=== PATIENT | male | born 1985 | race Caucasian/White ===

== ENCOUNTER 2020-07-31 19:24 | Emergency (ER) | payer OTHER ==
[2020-07-31 19:55] VITALS: BP 163/73
--- OUTSIDE RECORDS SUMMARY | 2020-07-31 20:15 | EXTERNAL MEDICAL SUMMARY RPT | Continuity of Care Document ---
:1985 Demographics Phone Unavailable Preferred Language Unknown Marital Status Unknown Yarsanism Affiliation Unknown Race Unknown Ethnic Group Unknown Author Organization [facility] Address [address] [phone] Phone Social History date description facility [id number]
--- NOTE | 2020-07-31 20:18 | XRAY Report ---
PROCEDURE: Foot 3 View RT INDICATIONS: injury, smacked on a metal chair TECHNIQUE: 3 views of the foot were acquired. COMPARISON: None FINDINGS: Bones: No fractures or dislocations. No suspicious bony lesions. Incidental note is made of an acc essory ossicle, an os peroneum. Soft tissues: No tibiotalar joint effusion. Achilles tendon appears normal. IMPRESSION: No displaced fractures are seen on this plain study. In this patient with a given history of trauma, please correlate with focal tenderness. If clinically appropriate, please consider a short-term follow-up plain films series versus a dedicated CT study. Reviewed by: Mike Ruvalcaba MD on 07/31/2020 7:17 PM [facility] Approved by: Mike Ruvalcaba MD on 07/31/2020 7:17 PM TITI Station ID: [id number]
--- NOTE | 2020-07-31 20:39 | ED Physician Documentation ---
PD HPI LOWER EXT INJURY - Stated complaint Stated Complaint: RT FOOT PX - Chief complaint Chief Complaint: Trauma Ext - History obtained from History obtained from: Patient - History of Present Illness PD HPI LOW EXT INJURY LOCATION: Right - Additional information Additional information: 1130 this morning was doing handstands and when he came down he hit the top of his right foot on a chair. Has pain near the proximal first metatarsal. He is able to walk and bear weight. No other injuries. Review of Systems Constitutional: reports: Reviewed and negative Eyes: reports: Reviewed and negative Ears: reports: Reviewed and negative Nose: reports: Reviewed and negative PD PAST MEDICAL HISTORY - Present Medications Home Medications: Ambulatory Orders Medication Instructions Recorded Confirmed traMADol [Ultram] 50 mg PO Q4-6H PRN #10 tablet 07/31/20 - Allergies Allergies/Adverse Reactions: Allergies Allergy/AdvReac Type Severity Reaction Status Date / Time NSAIDS (Non-Steroidal AdvReac Headache Verified 07/31/20 19:55 Anti-Inflamma PD ED PE NORMAL - Vitals Vital signs reviewed: Yes - General General: Alert and oriented X 3, No acute distress - Extremities Extremities: Other (There is ecchymosis and scrape near the proximal first metatarsal with mild tenderness but no pain with range of motion of the first toe.) - Neuro Neuro: Alert and oriented X 3, Normal speech Results - Vitals Vitals: Vital Signs - 24 hr 07/31/20 19:52 Temperature 37.1 C Heart Rate 74 Respiratory 14 Rate Blood Pressure 163/73 H O2 Saturation 98 Oxygen O2 Source Room air - Rads (name of study) Three-view right foot Radiology: EMP read contemporaneously (Normal) Departure - Departure Disposition: Home, Self Care Clinical Impression: Contusion of right foot Qualifiers: Encounter type: initial encounter Qualified Code(s): S90.31XA - Contusion of right foot, initial encounter Condition: Good Record reviewed to determine appropriate education?: Yes Instructions: ED Sprain Foot Prescriptions: traMADol [Ultram] 50 mg PO Q4-6H PRN #10 tablet PRN Reason: Pain Comments: Recheck with your doctor in a week if not improved, return for new or worsening symptoms.
[2020-07-31] MEDS ORDERED: traMADol 50 MG TABLET PO STA (20:40)
== END 2020-07-31 20:57 | disposition home or self-care (01) ==
LOC: ED 19:24
DX: S90.31XA Contusion of right foot, initial encounter (principal); W22.8XXA Striking against or struck by other objects, initial encounter; Y93.B9 Activity, other involving muscle strengthening exercises; Y92.009 Unspecified place in unspecified non-institutional (private) residence as the place of occurrence of the external cause
CPT/HCPCS: 73630; 99283; A9270